=== PATIENT | female | born 1985 | race Two or more races ===

== ENCOUNTER 2025-04-03 23:04 | Inpatient (IN) | payer MEDICAID, OTHER ==
[~2025-04-03] VITALS: Ht 165.1 cm; Wt 122.7 kg
--- NOTE | 2025-04-03 23:24 | ED.PDOC ---
HPI Comments 39 year old female came to ER for chest pains. Patient has history of hypertension, dyslipidemia, congestive heart failure, CVA. Claims she has been having left-sided chest pains, constant, aching, nonradiating for the past 3 days, associated with shortness a breath and diaphoresis. Denies any nausea or vomiting. Denies any use of prohibited drugs. Patient states she was seen at [facility] 2 weeks ago for AL but she left AMA Chief Complaint: Chest Pain Time Seen by MD: 23:23 Reviewed Notes: Nurses Notes Information Source: Patient Mode of Arrival: EMS Severity: Moderate Timing: Hours Duration: Since onset Prehospital treatment: None Location: Chest (L) Radiation: No Radiation Quality: Aching Onset: With Light Exertion Cardiac Risk Factors: Hyperlipidemia, HTN History of: Similar pain in past Associated Signs and Symptoms: SOB Past Medical History PAST MEDICAL HISTORY: CHF, CVA, High Lipids, HTN Surgical History: Denies all surgeries AREA FORESTER History: Denies all AREA FORESTER Hx Family History Family History: Reviewed,noncontributory to illness Social History Smoker: Non-Smoker Alcohol: Denies ETOH Use Drugs: Denies Drug Use Lives In: Home Constitutional: denies: chills, diaphoresis, fatigue, fever, malaise, sweats, weakness, others EENTM: denies: blurred vision, double vision, ear bleeding, ear discharge, ear drainage, ear pain, ear ringing, eye pain, eye redness, hearing loss, mouth pain, mouth swelling, nasal discharge, nose bleeding, nose congestion, nose pain, photophobia, tearing, throat pain, throat swelling, voice changes, others Respiratory: reports: SOB at rest, shortness of breath; denies: cough, hemoptysis, orthopnea, SOB with excertion, stridor, wheezing, others Cardiovascular: reports: chest pain, dizzy spells; denies: diaphoresis, Dyspnea on exertion, edema, irregular heart beat, left arm pain, lightheadedness, palpitations, PND, syncope, others Gastrointestinal: denies: abdomen distended, abdominal pain, blood streaked bowels, constipated, diarrhea, dysphagia, difficulty swallowing, hematemesis, melena, nausea, poor appetite, poor fluid intake, rectal bleeding, rectal pain, vomiting, others Genitourinary: denies: abnormal vagina bleeding, burning, dyspareunia, dysuria, flank pain, frequency, hematuria, incontinence, pain, , vagina discharge, urgency, others Neurological: denies: dizziness, fainting, headache, left sided numbness, left sided weakness, numbness, paresthesia, pre-existing deficit, right sided numbness, right sided weakness, seizure, speech problems, tingling, tremors, weakness, others Musculoskeletal: denies: back pain, gout, joint pain, joint swelling, muscle pain, muscle stiffness, neck pain, others Integumetry: denies: bruises, change in color, change in hair/nails, dryness, laceration, lesions, lumps, rash, wounds, others Allergic/Immunocompromised: denies: Difficulty Healing, Frequent Infections, Hives, Itching, others Hematologic/Lymphatic: denies: anemia, blood clots, easy bleeding, easy bruising, swollen glands, others Endocrine: denies: excessive hunger, excessive sweating, excessive thirst, excessive urination, flushing, intolerance to cold, intolerance to heat, unexplained weight gain, unexplained weight loss, others Psychiatric: denies: anxiety, bipolar disorder, depression, hopeless, panic disorder, schizophrenia, sleepless, suicidal, others Physical Exam General Appearance: No Apparent Distress, Normal HEENT: Normal ENT Inspection, Pharynx Normal, TMs Normal Neck: Full Range of Motion, Non-Tender, Normal, Normal Inspection Respiratory: Chest Non-Tender, Lungs Clear, No Accessory Muscle Use, No Respiratory Distress, Normal Breath Sounds Cardiovascular: No Edema, No JVD, No Murmur, No Gallop, Normal Peripheral Pulses, Regular Rate/Rhythm Breast Exam: Deferred Gastrointestinal: No Organomegaly, Non Tender, No Pulsatile Mass, Normal Bowel Sounds, Soft Genitalia: Deferred Pelvic: Deferred Rectal: Deferred Extremities: No calf tenderness, Normal capillary refill, Normal inspection, Normal range of motion, Non-tender, No pedal edema Musculoskeletal : Apperance: Normal Neurologic: Alert, heat treat technician II-XII nml as Tested, No Motor Deficits, Normal Affect, Normal Mood, No Sensory Deficits Cerebellar Function: Normal Reflexes: Normal Skin: Dry, Normal Color, Warm Lymphatic: No Adenopathy EKG EKG : Pulse Rate (adult): 124 Cardiac Rhythm: ST Was a procedure done? Was a procedure done?: No CP Differential Dx Differential Diagnosis: Angina, Anxiety / Panic Attack, Hyperthyroidism, Hyperventilation, Sinus Tachycardia Differential Diagnosis: Angina, Chest Wall Pain, Costochondritis, Esophageal reflux/spasm, Gastritis, Myocardial Infarction, Pneumonia X-Ray, Labs, Meds, VS Vital Signs Date Time Temp Pulse Resp B/P (MAP) Pulse Ox O2 Delivery O2 Flow Rate FiO2 04/03/25 23:52 120 17 98 Nasal Cannula* 2 28 04/03/25 23:45 124 04/03/25 23:40 100.0 120 17 145/114 (124) 98 100.0 04/03/25 23:24 124 Lab Test 04/03/25 23:34 04/03/25 23:12 Range/Units POC Glucose 110 H 70-106 mg/dl White Blood Count 13.5 H 4.4-10.8 10^3/uL Red Blood Count 4.70 4.0-5.20 10^6/uL Hemoglobin 14.3 12.2-16.2 g/dL Hematocrit 43.6 36.0-46.0 % Mean Corpuscular Volume 92.7 80.0-100.0 fL Mean Corpuscular Hemoglobin 30.4 28.0-32.0 pg Mean Corpuscular Hemoglobin Concent 32.8 32.0-36.0 g/dL Red Cell Distribution Width 15.9 H 11.8-14.3 % Platelet Count 222 140-450 10^3/uL Mean Platelet Volume 8.8 6.9-10.8 fL Neutrophils (%) (Auto) 45.7 37.0-80.0 % Lymphocytes (%) (Auto) 45.8 10.0-50.0 % Monocytes (%) (Auto) 6.9 0.0-12.0 % Eosinophils (%) (Auto) 1.1 0.0-7.0 % Basophils (%) (Auto) 0.5 0.0-2.0 % Neutrophils # (Auto) 6.2 1.6-8.6 10 ^3/uL Lymphocytes # (Auto) 6.2 H 0.4-5.4 10 ^3/uL Monocytes # (Auto) 0.9 0-1.3 10 ^3/uL Eosinophils # (Auto) 0.1 0-0.8 10 ^3/uL Basophils # (Auto) 0.1 0-0.2 10 ^3/uL Nucleated Red Blood Cells 0.1 % Prothrombin Time Pending Prothrombin Time INR Pending Activated Partial Thromboplast Time Pending Sodium Level Pending Potassium Level Pending Chloride Level Pending Carbon Dioxide Level Pending Anion Gap Pending Blood Urea Nitrogen Pending Creatinine Pending Glomerular Filtration Rate Calc Pending BUN/Creatinine Ratio Pending Serum Glucose Pending Calcium Level Pending Troponin I High Sensitivity 4740 *H </=34 ng/L Time of 1ST Reevaluation: 23:20 Reevaluation 1ST: Unchanged Patient Education/Counseling: Diagnosis, Treatment Family Education/Counseling: No Family Present Departure 1 Departure Time of Disposition: 00:03 (Patient presented with chest pain that was concerning for possible STEMI, ACS, PE, Pneumonia, Muscle Strain, COPD, Dissection. Data: 1. I ordered and reviewed the result of at least 3 labs including a CBC, BMP, and Troponin. 2. I independently interpreted the following tests: EKG which shows sinus tachycardia and Chest X-ray which shows benign chest.Risk:This patient has a high risk of morbidity due to further diagnostic testing or treatment and may suffer from an acute cardiac or respiratory disorder. Workup reveals NSTEMI and patient should be admitted for further workup and possible expert consultation. ) Impression: Primary Impression: NSTEMI (non-ST elevated myocardial infarction) Additional Impression: Acute chest pain Disposition: 09 ADMITTED INPATIENT Admit to: Tele Condition: Guarded Critical Care Note Critical Care Time?: Yes (35 min-critical care time only) Critical care comment: Acute chest pains Authorized and Performed by: José Espinosa MD Total critical care time: Approximately 37 minutes Due to a high probability of clinically significant, life threatening deterioration, the patient required my highest level of preparedness to intervene emergently and I personally spent this critical care time directly and personally managing the patient. This critical care time included obtaining a history; examining the patient; pulse oximetry; ordering and review of studies; arranging urgent treatment with development of a management plan; evaluation of patient's response to treatment; frequent reassessment; and, discussions with other providers. This critical care time was performed to assess and manage the high probability of imminent, life-threatening deterioration that could result in multi-organ failure. It was exclusive of separately billable procedures and treating other patients and teaching time. Please see my other sections and the rest of the note for further information on patient assessment and treatment. Stability Stability form required: No Heart Score Heart Score: Heart Score Response (Comments) Value History Moderate Suspicious 1 EKG Repolarization Disturb 1 Age <45 0 Risk Factors >3 or Hx ASHD 2 Troponin Normal limit 0 Total 4 I personally scribed for JOSÉ ESPINOSA MD ([facility]) on 04/03/25 at 23:24. Electronically submitted by [place] ([email or web address]). I personally scribed for JOSÉ ESPINOSA MD ([facility]) on 04/03/25 at 23:51. Electronically submitted by [place] ([email or web address]). JOSÉ ESPINOSA MD April 03, 2025 23:24
[2025-04-03 23:50] LABS: Basophils # (auto) 0.1 10 ^3/uL (0-0.2); Basophils % (auto) 0.5 % (0.0-2.0); Eosinophils # (auto) 0.1 10 ^3/uL (0-0.8); Eosinophils % (auto) 1.1 % (0.0-7.0); Hematocrit 43.6 % (36.0-46.0); Hemoglobin 14.3 g/dL (12.2-16.2); Lymphocytes # (auto) 6.2 10 ^3/uL (0.4-5.4); Lymphocytes % (auto) 45.8 % (10.0-50.0); Mean Corpuscular Hemoglobin 30.4 pg (28.0-32.0); Mean Corpuscular Hgb Conc. 32.8 g/dL (32.0-36.0); Mean Corpuscular Volume 92.7 fL (80.0-100.0); Monocytes # (auto) 0.9 10 ^3/uL (0-1.3); Monocytes % (auto) 6.9 % (0.0-12.0); Neutrophils # (auto) 6.2 10 ^3/uL (1.6-8.6); Neutrophils % (auto) 45.7 % (37.0-80.0); Nucleated Red Blood Cells % 0.1 %; Platelet Count (auto) 222 10^3/uL (140-450); Red Cell Distribution Width 15.9 % (11.8-14.3); White Blood Cell 13.5 10^3/uL (4.4-10.8)
[2025-04-03 23:52] VITALS: PULSE 120; RESP 17; O2SAT 98
[2025-04-04] MEDS ORDERED: HEPARIN DRIP/D5W 100UNITS/ML 250 ML IV SCH
[2025-04-04 00:05] LABS: Chloride 107 mmol/L (98-107); Potassium 4.6 mmol/L (3.5-5.1); Sodium 138 mmol/L (136-145)
[2025-04-04 00:06] LABS: Anion Gap 7 (5-15); Calcium 9.8 mg/dL (8.7-10.4); Carbon Dioxide 24 mmol/L (20-31)
[2025-04-04 00:11] LABS: BUN/Creatinine Ratio 11.1 (10.0-20.0); Blood Urea Nitrogen 14 mg/dL (9-23); Glucose 117 mg/dL (74-106)
[2025-04-04] MEDS: ONDANSETRON HCL 4 MG/2 ML VIAL IV ONE (00:16)
[2025-04-04 00:17] LABS: INR 1.19 (0.9-1.15); Partial Thromboplastin Time 25.6 SEC (24.5-34.5); Prothrombin Time 12.4 sec (9.3-11.8)
[2025-04-04] MEDS: MORPHINE SULFATE 4 MG/ML SYR/VIAL IV ONE (00:17)
[2025-04-04] MEDS: HEPARIN SODIUM (PORCINE) 5000 UNITS/ML 1ML VIAL IV ONE (00:17)
--- NOTE | 2025-04-04 00:21 | DVH ---
CHEST RADIOGRAPH Indication: chest pain Technique: Single frontal view of the chest was obtained COMPARISON: None FINDINGS / IMPRESSION: Lines and Tubes: None Lungs: Mild pulmonary vascular congestion. No evidence of pulmonary infiltrates or edema. Pleura: No effusion. No pneumothorax. Cardiomediastinal contours: Moderate cardiomegaly.
[2025-04-04] MEDS: HEPARIN DRIP/D5W 100UNITS/ML 250 ML IV SCH ×3 (01:23→16:46)
--- NOTE | 2025-04-04 03:16 | ECG ---
[facility] [place] Test Date: 2025-04-04 Test Time: 00:15:52 Pat Name: AUGUST MOTLEY Department: ED Room: 0219T Gender: F Director Of Labor And Delivery: OGRAN : 1985 Requested By: JOSÉ GALARZA Order Number: [id number] Reading MD: Haroon Newman Measurements Intervals [place] Rate: 116 P: 68 AL: 156 QRS: 35 QRSD: 84 T: 75 QT: 338 QTc: 470 Interpretive Statements Sinus tachycardia LAE, consider biatrial enlargement Borderline low voltage, extremity leads Baseline wander in lead(s) I,III,aVL Electronically Signed On 04-05-2025 22:28:30 PDT by Haroon Newman Please click the below link to view image of tracing.
--- NOTE | 2025-04-04 03:16 | ECG ---
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
[2025-04-04] MEDS ORDERED: ONDANSETRON HCL 4 MG/2 ML VIAL IV PRN (04:45)
[2025-04-04] MEDS ORDERED: MORPHINE SULFATE INJ 2 MG/ml SYRG IV PRN ×2 (04:45→05:15)
[2025-04-04] MEDS ORDERED: DOCUSATE SOD 100 MG CAP PO PRN (04:45)
[2025-04-04] MEDS ORDERED: HYDROcodone-ACET 5/325MG TAB PO PRN (04:45)
[2025-04-04] MEDS ORDERED: ACETAMINOPHEN 325 MG TAB PO PRN (04:45)
[2025-04-04] MEDS: cefTRIAXone 1GM/50ML D5W 50 ML IV ONE (04:56)
[2025-04-04] MEDS: SODIUM CHLORIDE 0.9% 1,000 ML IV SCH (04:56)
--- NOTE | 2025-04-04 05:17 | DVHHP2 ---
History of Present Illness Reason for Visit: NSTEMI (non-ST elevated myocardial infarction) History of Present Illness The patient is a 39-year-old female with past medical history of CHF, CVA, hyperlipidemia, and hypertension who presented to [facility] ED with complaint of chest pain. Patient reports symptoms progressively get worse with left-sided chest pain, constant, aching in nature, nonradiating, for the past 3 days, associated shortness of breaths, diaphoresis, getting worse today that prompted this visit. Patient was seen and evaluated in the ED, laboratory data shows WBC 13.5, platelets 222, sodium 138, potassium 4.6, BUN 14, creatinine 1.26, glucose 117, PT 12.4, INR 1.19, PTT 25.6, troponin 4146, blood pressure 154/121, heart rate 99, temperature 97.2 F, O2 saturation 99% on oxygen. Chest x-ray revealing mild pulmonary vascular congestion, moderate cardiomegaly, no evidence of pulmonary infiltrate or edema, no effusion, no pneumothorax. Patient was started on heparin drip, please see medication orders section in the computer. On my assessment, patient denied chest pain at this moment, no headache, no dizziness, no diaphoresis, currently on oxygen, no diarrhea, no nausea, no vomiting, no fever, no chills. Patient was admitted for further evaluation and medical management. Past Medical History CHF, CVA, High Lipids, HTN Past Surgical History Denies all surgeries Family History Reviewed, noncontributory to the management of this case. Past Social History The patient lives at home, denies smoking, alcohol or illicit drugs abuse. Review of Systems Constitutional: Yes: Weakness; No: Fever, Chills, Sweats, Malaise, Other Eyes: No: Pain, Vision change, Conjunctivae inflammation, Eyelid inflammation, Other, Redness ENT: No: Ear pain, Ear discharge, Nose pain, Nose discharge, Nose congestion, Mouth pain, Mouth swelling, Throat pain, Throat swelling, Other Respiratory: Shortness of breath, Other (SOB at rest, dizzy spells); No: Cough, Dry, SOB with excertion, Wheezing, Hemoptysis, Pleuritic Pain, Sputum, Wheezing Cardiovascular: Chest Pain; No: Palpitations, Orthopnea, Paroxysmal Noc. Dyspnea, Edema, Lt Headedness, Other Gastrointestinal: No: Nausea, Vomiting, Abdominal Pain, Diarrhea, Constipation, Melena, Hematochezia, Other Genitourinary: No Dysuria, No Frequency, No Incontinence, No Hematuria, No Retention, No Other Musculoskeletal: No: other, neck pain, shoulder pain, arm pain, back pain, hand pain, leg pain, foot pain Skin: No: Rash, Lesions, Jaundice, Bruising, Other Neurological: No: Weakness, Numbness, Incoordination, Change in speech, Confusion, Seizures, Other Allergies: Coded Allergies: Vancomycin (Verified Allergy, Unknown, 04/04/25) Medications Current Medications Medications Dose Ordered Sig/Daryl Route Start Time Stop Time Status Last Admin Dose Admin Heparin Sodium/ Dextrose 250 ml @ 10 mls/hr Q24H IV 04/04/25 01:15 04/04/25 01:23 10 MLS/HR Aspirin 81 mg DAILY PO 04/04/25 10:00 Atorvastatin Calcium 40 mg HS PO 04/04/25 22:00 Hydralazine HCl 10 mg Q6HP PRN IV 04/04/25 04:45 Metoprolol Tartrate 50 mg BID PO 04/04/25 10:00 Ceftriaxone Sodium 50 ml @ 100 mls/hr Q24H IV 04/05/25 05:00 Sodium Chloride 1,000 ml @ 60 mls/hr [id number] IV 04/04/25 04:45 04/04/25 04:56 60 MLS/HR Acetaminophen/ Hydrocodone Bitart 1 tab Q4HP PRN PO 04/04/25 04:45 Ondansetron HCl 4 mg Q4HP PRN IV 04/04/25 04:45 Docusate Sodium 100 mg BIDPRN PRN PO 04/04/25 04:45 Acetaminophen 650 mg Q6HP PRN PO 04/04/25 04:45 Morphine Sulfate 2 mg Q4HPRN PRN IV 04/04/25 04:45 Exam Vital Signs Vital Signs Date Time Temp Pulse Resp B/P (MAP) Pulse Ox O2 Delivery O2 Flow Rate FiO2 04/04/25 04:00 99 24 154/121 (132) 99 04/04/25 02:00 97.2 97.2 04/03/25 23:52 Nasal Cannula* 2 28 General Appearance: Alert, Oriented X3, Cooperative, No acute distress HEENT: Atraumatic, PERRLA, EOMI, Mucous membr. moist/pink Respiratory: Clear to auscultation, Normal air movement Cardiovascular: Regular rate, Normal S1, Normal S2, No murmurs Abdominal: Normal bowel sounds, Soft, No tenderness, No hepatospenomegaly, No masses Extremities: No clubbing, No cyanosis, No edema, Normal pulses, No tenderness/swelling Skin: No rashes, No breakdown, No significant lesion Neuro: Normal speech, Normal tone, Sensation intact, Cranial nerves 3-12 NL, Reflexes 2+, Other (Generalized weakness) Psych/Mental Status: Mental status NL, Mood NL Labs/Xrays Labs Test 04/04/25 02:00 04/03/25 23:34 04/03/25 23:12 Range/Units Troponin I High Sensitivity 4146 *H </=34 ng/L POC Glucose 110 H 70-106 mg/dl White Blood Count 13.5 H 4.4-10.8 10^3/uL Red Blood Count 4.70 4.0-5.20 10^6/uL Hemoglobin 14.3 12.2-16.2 g/dL Hematocrit 43.6 36.0-46.0 % Mean Corpuscular Volume 92.7 80.0-100.0 fL Mean Corpuscular Hemoglobin 30.4 28.0-32.0 pg Mean Corpuscular Hemoglobin Concent 32.8 32.0-36.0 g/dL Red Cell Distribution Width 15.9 H 11.8-14.3 % Platelet Count 222 140-450 10^3/uL Mean Platelet Volume 8.8 6.9-10.8 fL Neutrophils (%) (Auto) 45.7 37.0-80.0 % Lymphocytes (%) (Auto) 45.8 10.0-50.0 % Monocytes (%) (Auto) 6.9 0.0-12.0 % Eosinophils (%) (Auto) 1.1 0.0-7.0 % Basophils (%) (Auto) 0.5 0.0-2.0 % Neutrophils # (Auto) 6.2 1.6-8.6 10 ^3/uL Lymphocytes # (Auto) 6.2 H 0.4-5.4 10 ^3/uL Monocytes # (Auto) 0.9 0-1.3 10 ^3/uL Eosinophils # (Auto) 0.1 0-0.8 10 ^3/uL Basophils # (Auto) 0.1 0-0.2 10 ^3/uL Nucleated Red Blood Cells 0.1 % Prothrombin Time 12.4 H 9.3-11.8 sec Prothrombin Time INR 1.19 H 0.9-1.15 Activated Partial Thromboplast Time 25.6 24.5-34.5 SEC Sodium Level 138 136-145 mmol/L Potassium Level 4.6 3.5-5.1 mmol/L Chloride Level 107 98-107 mmol/L Carbon Dioxide Level 24 20-31 mmol/L Anion Gap 7 5-15 Blood Urea Nitrogen 14 9-23 mg/dL Creatinine 1.26 H 0.550-1.02 mg/dL Glomerular Filtration Rate Calc 55 >90 mL/min BUN/Creatinine Ratio 11.1 10.0-20.0 Serum Glucose 117 H 74-106 mg/dL Calcium Level 9.8 8.7-10.4 mg/dL PATIENT: AUGUST MOTLEY ACCT: [id number] UNIT: [id number] : 1985 LOC: ER ROOM / BED: / AGE / SEX: 39 / F ADM STATUS: REG ER SERVICE [id number] ORDERING PHYSICIAN: JOSÉ GALARZA MD PROCEDURE(s): CXRP - CHEST PORTABLE REASON: chest pain ORDER NUMBER(s): [id number], ACCESSION NUMBER(s): [id number] CHEST RADIOGRAPH Indication: chest pain Technique: Single frontal view of the chest was obtained COMPARISON: None FINDINGS/IMPRESSION: Lines and Tubes: None Lungs: Mild pulmonary vascular congestion. No evidence of pulmonary infiltrates or edema. Pleura: No effusion. No pneumothorax. Cardiomediastinal contours: Moderate cardiomegaly. Assessment/Plan Assessment/Plan NSTEMI (non-ST elevated myocardial infarction) Acute chest pain Generalized weakness Acute respiratory distress Plan 1. Admit to telemetry units 2. Breathing treatment 3. Pain control management 4. Management of fluids and electrolytes 5. Consultation for Cardiology 6. Diagnostic tests chest x-ray 7. DVT prophylaxis-on heparin drip 8. Repeat labs CBC, CMP in a.m. 9. Continue with current medical management 10. Treatment plan discussed with patient and RN. Patient verbalized understanding. Plan discussed with: Patient, Other (RN) My Orders Orders - GREGORIO KERN DNP Procedure Category Date Status Time * Cardiology Consult CONS 04/04/25 Transmitted 04:41 Aspirin Tablet PHA 04/04/25 In Process 10:00 Atorvastatin (Lipitor) PHA 04/04/25 In Process 22:00 Hydralazine Injection PHA 04/04/25 In Process (Apresoline Inject 04:45 Metoprolol Tartrate PHA 04/04/25 In Process Tablet (Lopressor Ta 10:00 Allergies YAQUELIN 04/04/25 In Process 04:41 Code Status CODE 04/04/25 Transmitted 04:41 Sodium Chloride 0.9% PHA 04/04/25 In Process 04:45 Oxygen Per Hour RT 04/04/25 Transmitted 04:41 Hydrocodone-Acet PHA 04/04/25 In Process 5325mg Tab ([place] 04:45 Ondansetron Hcl PHA 04/04/25 In Process (Zofran) 04:45 Docusate Sodium PHA 04/04/25 In Process Capsule (Colace 04:45 Fall Risk Precautions YAQUELIN 04/04/[address] 04:41 Complete Blood Count LAB 04/05/25 Verified 04:00 Comprehensive LAB 04/05/25 Verified Metabolic Panel 04:00 Cardiac DIET 04/04/25 Transmitted Diet-2gna,Lofat,Lochol Breakfast Condition: Serious YAQUELIN 04/04/25 In Process 04:41 Acetaminophen Tablet PHA 04/04/25 In Process (Tylenol Tablet) 04:45 Bedrest With Bathroom YAQUELIN 04/04/25 In Process Privileg 04:41 Maintain Bed Rest YAQUELIN 04/04/25 In Process 04:41 Morphine Sulfate PHA 04/04/25 In Process Injection 04:45 Sequential YAQUELIN 04/04/25 In Process Compression Device Ceftriaxone 1gm/50ml PHA 04/05/25 In Process D5w (Rocephin) 05:00 Admit ADMIT 04/04/25 Verified 05:15 Nitroglycerin PHA 04/04/25 Verified Sublingual (Ntrostat 05:15 Morphine Sulfate PHA 04/04/25 Verified Injection 05:15 Notify Of Changes [facility] 04/04/25 Verified From Base 05:15 Business Strategy Manager For [facility] 04/04/25 Verified 24 Hours 05:15 Emergency Dysrhythmia [facility] 04/04/25 Verified Protocol 05:15 Rhythm Strips Once [facility] 04/04/25 Verified Every Shift 05:15 Oxygen By Nasal RT 04/04/25 Verified Cannula 05:15 Problem List: (1) NSTEMI (non-ST elevated myocardial infarction) (2) Acute chest pain (3) Generalized weakness (4) Acute respiratory distress Date of Service: April 04, 2025 Billing Provider: GREGORIO KERN DNP Common Visit Codes: [id number]-[id number] INP/OBS CARE (HIGH) GREGORIO KERN DNP April 04, 2025 05:17
[2025-04-04] MEDS: hydrALAZINE HCL 20 MG/ML VL IV PRN (05:28)
[2025-04-04 08:06] LABS: INR 1.15 (0.9-1.15); Partial Thromboplastin Time 35.9 SEC (24.5-34.5)
[2025-04-04 08:50] LABS: Magnesium 1.9 mg/dL (1.6-2.6)
--- NOTE | 2025-04-04 09:30 | DVHINCON2 ---
GASTON FERNANDEZ [facility] 04/04/25 0930: Date Seen: April 04, 2025 Referring Physician ZACKERY Hardy Reason for Consultation NSTEMI History of Present Illness This is a 39-year-old female patient who presents to the emergency room with chief complaint of chest pain for three days prior to emergency room arrival. The patient describes the pain as unprovoked, intermittent, heavy in nature, left-sided and nonradiating. She denies any associated symptoms. Initial twelve lead electrocardiogram reveals sinus tachycardia Q-waves seen in inferior leads. Initial troponin level of 4740ng/L with slight down trend thereafter. Significant past medical history includes congestive heart failure, myocardial infarction, hypertension, dyslipidemia, CVA without residual weakness, obesity, amphetamine and tobacco use. The patient reports that she was recently at [facility] approximately two weeks ago where she was diagnosed with "heart failure and a heart attack". She denies undergoing any procedures such as coronary angiogram. She states that she left against medical advice at the time because she was tired of waiting for her echocardiogram results. Of note, the patient also admits to recent methamphetamine use approximately 3-4 days ago. Past Medical History Past medical history reviewed. No other significant than mentioned above. Past Surgical History Denies any previous surgeries Family History Family history reviewed. Social History Admits to methamphetamine use approximately 3-4 days ago Patient has a 15 pack-year history, smokes half a pack per day Denies any alcohol use Allergies: Coded Allergies: Vancomycin (Verified Allergy, Unknown, 04/04/25) Home Meds Home medications reviewed. Current Medications Current Medications Medications (Trade) Dose Ordered Sig/Daryl Route PRN Reason Start Time Stop Time Status Last Admin Heparin Sodium/ Dextrose 250 ml @ 9 mls/hr Q24H IV 04/04/25 00:00 04/04/25 01:07 DC Heparin Sodium/ Dextrose 250 ml @ 10 mls/hr Q24H IV 04/04/25 01:15 04/04/25 08:48 DC 04/04/25 01:23 Aspirin 81 mg DAILY PO 04/04/25 10:00 Atorvastatin Calcium (Lipitor) 40 mg HS PO 04/04/25 22:00 Hydralazine HCl (Apresoline Injection) 10 mg Q6HP PRN IV SBP>150 04/04/25 04:45 04/04/25 05:28 Metoprolol Tartrate (Lopressor Tablet) 50 mg BID PO 04/04/25 10:00 Ceftriaxone Sodium 50 ml @ 100 mls/hr Q24H IV 04/05/25 05:00 Sodium Chloride 1,000 ml @ 60 mls/hr [id number] IV 04/04/25 04:45 04/04/25 04:56 Acetaminophen/ Hydrocodone Bitart (Raymond 5/325MG Tab) 1 tab Q4HP PRN PO MODERATE PAIN (4-6 PAIN SCALE) 04/04/25 04:45 Ondansetron HCl (Zofran) 4 mg Q4HP PRN IV NAUSEA / VOMITING 04/04/25 04:45 Docusate Sodium (Colace Capsule) 100 mg BIDPRN PRN PO FOR CONSTIPATION 04/04/25 04:45 Acetaminophen (Tylenol Tablet) 650 mg Q6HP PRN PO PAIN SCALE 1-3 OR TEMP>100.4 04/04/25 04:45 Morphine Sulfate 2 mg Q4HPRN PRN IV SEVERE PAIN (7-10 PAIN SCALE) 04/04/25 04:45 Nitroglycerin (Ntrostat Sublingual) 0.4 mg Q5MINP PRN SL FOR CHEST PAIN 04/04/25 05:15 Morphine Sulfate 2 mg Q30M PRN IV FOR CHEST PAIN 04/04/25 05:15 Heparin Sodium/ Dextrose 250 ml @ 12 mls/hr [id number] IV 04/04/25 09:00 Review of Systems Constitutional: No symptom reported Ears, Nose, & Throat: No symptom reported Eyes: No symptom reported Neurological: No symptoms reported Pulmonary/Respiratory: No symptoms reported Cardiovascular: Chest pain Gastrointestinal: No symptom reported Genitourinary: No symptom reported Musculoskeletal: No symptom reported Skin: No symptom reported Psychiatric: No symptom reported Endocrine: No symptom reported Hematologic/Lymphatic: No symptom reported Vital Signs Vital Signs Date Time Temp Pulse Resp B/P (MAP) Pulse Ox O2 Delivery O2 Flow Rate FiO2 04/04/25 08:00 102 04/04/25 06:00 25 155/118 (130) 98 04/04/25 02:00 97.2 97.2 04/03/25 23:52 Nasal Cannula* 2 28 Physical Exam General Appearance: Cooperative. Morbidly obese Pulmonary/Respiratory: Clear, bilateral breaths sounds. Cardiovascular/Chest: Regular rate and rhythm. Peripheral Pulses: 2+ Radial (R). 2+ Radial (L). 2+ Pedal (R). 2+ Pedal (L) Abdominal Exam: Normal bowel sounds Ankle Exam: Negative ankle edema Lower extremities: Negative lower extremity edema Neuro/Mental Status: A/OX4, coherent. Thoughts/Psych: Normal thought pattern. Appropriate mood and affect. Good judgment and insight. Appearance: No acute distress. Skin Exam: Normal inspection. Normal color. Warm and dry. Labs/Diagnostic Data Labs Test 04/04/25 07:37 04/04/25 02:00 04/03/25 23:34 04/03/25 23:12 Range/Units Prothrombin Time 12.0 H 9.3-11.8 sec Prothrombin Time INR 1.15 0.9-1.15 Activated Partial Thromboplast Time 35.9 H 24.5-34.5 SEC Magnesium Level 1.9 1.6-2.6 mg/dL Troponin I High Sensitivity 4146 *H </=34 ng/L Triglycerides Level 91 < 150 mg/dL Cholesterol Level 127 < 200 mg/dL LDL Cholesterol 89 < 100 mg/dL HDL Cholesterol 30 L 40-59 mg/dL Thyroid Stimulating Hormone (TSH) 1.76 0.55-4.78 uIU/mL POC Glucose 110 H 70-106 mg/dl White Blood Count 13.5 H 4.4-10.8 10^3/uL Red Blood Count 4.70 4.0-5.20 10^6/uL Hemoglobin 14.3 12.2-16.2 g/dL Hematocrit 43.6 36.0-46.0 % Mean Corpuscular Volume 92.7 80.0-100.0 fL Mean Corpuscular Hemoglobin 30.4 28.0-32.0 pg Mean Corpuscular Hemoglobin Concent 32.8 32.0-36.0 g/dL Red Cell Distribution Width 15.9 H 11.8-14.3 % Platelet Count 222 140-450 10^3/uL Mean Platelet Volume 8.8 6.9-10.8 fL Neutrophils (%) (Auto) 45.7 37.0-80.0 % Lymphocytes (%) (Auto) 45.8 10.0-50.0 % Monocytes (%) (Auto) 6.9 0.0-12.0 % Eosinophils (%) (Auto) 1.1 0.0-7.0 % Basophils (%) (Auto) 0.5 0.0-2.0 % Neutrophils # (Auto) 6.2 1.6-8.6 10 ^3/uL Lymphocytes # (Auto) 6.2 H 0.4-5.4 10 ^3/uL Monocytes # (Auto) 0.9 0-1.3 10 ^3/uL Eosinophils # (Auto) 0.1 0-0.8 10 ^3/uL Basophils # (Auto) 0.1 0-0.2 10 ^3/uL Nucleated Red Blood Cells 0.1 % Sodium Level 138 136-145 mmol/L Potassium Level 4.6 3.5-5.1 mmol/L Chloride Level 107 98-107 mmol/L Carbon Dioxide Level 24 20-31 mmol/L Anion Gap 7 5-15 Blood Urea Nitrogen 14 9-23 mg/dL Creatinine 1.26 H 0.550-1.02 mg/dL Glomerular Filtration Rate Calc 55 >90 mL/min BUN/Creatinine Ratio 11.1 10.0-20.0 Serum Glucose 117 H 74-106 mg/dL Hemoglobin A1c 6.3 H <5.7 % A1C Calcium Level 9.8 8.7-10.4 mg/dL Assessment NSTEMI, rule out coronary artery disease Rule out structural heart disease Hypertension Dyslipidemia CVA without residual weakness Tobacco use Amphetamine use Obesity Plan/Recommendation We will continue with the following plan/recommendations (Dr. Cleary): * Transthoracic echocardiogram to evaluate cardiac function * Chest pain protocol * CASEY score: 2 points * HEART score: 4 points (moderate) * Heparin drip per ACS protocol * Single antiplatelet therapy and lipid-lowering agent * Close Cardiac surveillance * [facility] Case discussed with . Given the patient's clinical presentation and elevated troponin, the patient may benefit from a coronary angiogram with left heart catheterization. The procedure was discussed with the patient in full detail including risks and benefits. Risks include but are not limited to bleeding, contrast-induced nephropathy, stroke, and even . The patient understands and is agreeable to undergo the procedure. We will schedule the patient at soonest availability on 04/06/2025. Thank you for allowing us to care for this patient. Please call with any questions or concerns. Critical care time spent: 44 minutes This medical document was created using an electronic medical record system with voice recognition software and computerized dictation system. Although this document has been carefully reviewed, there might still be some phonetic and typographical errors. Occasional wrong-word or ``sound-alike substitutions may have occurred due to the inherent limitations of voice recognition software. These areas are purely typographical due to imperfections of the software programs and do not reflect any compromise in the patient's medical care. Please read the chart carefully and recognize, using context, where these substitutions have occurred. Plan discussed with: Patient NYHA Physical activity limitations: NA Date of Service: April 04, 2025 Billing Provider: GASTON FERNANDEZ Cardiology Common Codes: [id number] INP/OBS CARE (High) Cardiology Consultation Codes: [id number] CONSULT <45MIN LAURA CLEARY MD 04/04/25 1406: Allergies: Coded Allergies: Vancomycin (Verified Allergy, Unknown, 04/04/25) Plan/Recommendation pt personally seen in ER has andre h on body? from heat i personally reviewed her [facility] records negative v q scan, lvef 35% i talked to pt recommedn [facility] sunday and GDMT with HF tx 'i want to leave" pt likely wants to go home and do meth may from this i explained to her with RN with me pt left ama from [facility] as well , +meth very poor prognosis] GASTON FERNANDEZ April 04, 2025 09:30 LAURA CLEARY MD April 04, 2025 14:06
[2025-04-04] MEDS: ASPirin 81 mg TAB PO SCH (10:32)
[2025-04-04] MEDS: METOPROLOL TARTRATE 50 MG TAB PO SCH (10:37)
[2025-04-04] MEDS: OPTISON 3ml Vial for INJ IV ONE (12:13)
[2025-04-04] MEDS: FUROSEMIDE 20 MG/2 ML VIAL IV SCH (12:16)
--- NOTE | 2025-04-04 13:17 | DVHPN2 ---
Reviewed: Care Plan, H&P, Labs, Medications, Previous Orders, Radiology Changes from previous H/P or p: No Changes Eyes: No Pain, No Vision change, No Conjunctivae inflammation, No Eyelid inflammation, No Other, No Redness ENT: No Ear pain, No Ear discharge, No Nose pain, No Nose discharge, No Nose congestion, No Mouth pain, No Mouth swelling, No Throat pain, No Throat swelling, No Other Cardiovascular: Chest Pain; No Palpitations, No Orthopnea, No Paroxysmal Noc. Dyspnea, No Edema, No Lt Headedness, No Other Respiratory: No Cough, No Dry; Shortness of breath; No SOB with excertion, No Wheezing, No Hemoptysis, No Pleuritic Pain, No Sputum; Other (SOB at rest, dizzy spells) Gastrointestinal: No Nausea, No Vomiting, No Abdominal Pain, No Diarrhea, No Constipation, No Melena, No Hematochezia, No Other Genitourinary: No Dysuria, No Frequency, No Incontinence, No Hematuria, No Retention, No Other Musculoskeletal: No other, No neck pain, No shoulder pain, No arm pain, No back pain, No hand pain, No leg pain, No foot pain Skin: No Rash, No Lesions, No Jaundice, No Bruising, No Other Objective Vitals Vital Signs Date Time Temp Pulse Resp B/P (MAP) Pulse Ox O2 Delivery O2 Flow Rate FiO2 04/04/25 12:16 148/112 04/04/25 11:37 104 04/04/25 06:00 25 98 04/04/25 02:00 97.2 97.2 04/03/25 23:52 Nasal Cannula* 2 28 Intake/Output Intake and Output 04/04/25 07:00 Intake Total 150 ml Balance 150 ml Intake IV Total 150 ml Medications Current Medications Medications Dose Ordered Sig/Daryl Route Start Time Stop Time Status Last Admin Dose Admin Aspirin 81 mg DAILY PO 04/04/25 10:00 04/04/25 10:37 81 MG Atorvastatin Calcium 40 mg HS PO 04/04/25 22:00 Hydralazine HCl 10 mg Q6HP PRN IV 04/04/25 04:45 04/04/25 05:28 10 MG Metoprolol Tartrate 50 mg BID PO 04/04/25 10:00 04/04/25 10:37 50 MG Ceftriaxone Sodium 50 ml @ 100 mls/hr Q24H IV 6/1/25 05:00 Sodium Chloride 1,000 ml @ 60 mls/hr [id number] IV 04/04/25 04:45 04/04/25 04:56 60 MLS/HR Acetaminophen/ Hydrocodone Bitart 1 tab Q4HP PRN PO 04/04/25 04:45 Ondansetron HCl 4 mg Q4HP PRN IV 04/04/25 04:45 Docusate Sodium 100 mg BIDPRN PRN PO 04/04/25 04:45 Acetaminophen 650 mg Q6HP PRN PO 04/04/25 04:45 Morphine Sulfate 2 mg Q4HPRN PRN IV 04/04/25 04:45 Nitroglycerin 0.4 mg Q5MINP PRN SL 04/04/25 05:15 Morphine Sulfate 2 mg Q30M PRN IV 04/04/25 05:15 Heparin Sodium/ Dextrose 250 ml @ 12 mls/hr [id number] IV 04/04/25 09:00 04/04/25 09:00 12 MLS/HR Furosemide 20 mg DAILY IV 04/04/25 11:30 04/04/25 12:16 20 MG Laboratory Results Laboratory Tests 04/03/25 23:12 Chemistry Test 04/03/25 23:12 04/04/25 02:00 Calcium Level 9.8 mg/dL (8.7-10.4) Magnesium Level 1.9 mg/dL (1.6-2.6) Coagulation Test 04/03/25 23:12 04/04/25 07:37 Prothrombin Time 12.4 sec (9.3-11.8) H 12.0 sec (9.3-11.8) H Prothrombin Time INR 1.19 (0.9-1.15) H 1.15 (0.9-1.15) Activated Partial Thromboplast Time 25.6 SEC (24.5-34.5) 35.9 SEC (24.5-34.5) H Lipid panel Test 04/04/25 02:00 Cholesterol Level 127 mg/dL (< 200) HDL Cholesterol 30 mg/dL (40-59) L Triglycerides Level 91 mg/dL (< 150) HgA1c, TSH Test 04/03/25 23:12 04/04/25 02:00 Hemoglobin A1c 6.3 % A1C (<5.7) H Thyroid Stimulating Hormone (TSH) 1.76 uIU/mL (0.55-4.78) Labs and/or images reviewed: Labs reviewed by me, Image(s) reviewed by me Assessment/Plan Assessment/Plan NSTEMI, rule out coronary artery disease patient is scheduled for left heart catheterization on 04-06-25, cardiology consult by Dr. Martinez appreciated Rule out structural heart disease Hypertension Dyslipidemia CVA without residual weakness Tobacco use Amphetamine use Obesity Time spent 45 minutes Plan discussed with: Patient Date of Service: April 04, 2025 Billing Provider: RAYMOND STEWART MD Common Visit Codes: [id number] INP/OBS CARE(HIGH) RAYMOND STEWART MD April 04, 2025 13:17
[2025-04-04 13:46] VITALS: BP 146/110; PULSE 103; RESP 16; TEMP 91.3; O2SAT 98
[2025-04-04 14:07] VITALS: BP 146/110; PULSE 100; PULSE 110; RESP 18; TEMP 95.6; O2SAT 99
--- NOTE | 2025-04-04 14:30 | DVHSR ---
APPROVED REPORT EXAM: Two-dimensional and M-mode echocardiogram with Doppler, color Doppler and Optison. Blood Pressure: 155/118 mmHg INDICATION Evaluate Cardiac Function RISK FACTORS Obesity: Height: 5' 5", Weight: 254 DIMENSIONS LVDd5.3 (3.8-5.7cm)LA (2D)4.5 (1.9-4.0cm)Aortic Root3.1 (2.0-3.7cm) LVDs4.6 (2.5-4.0cm)LA (MM) (1.9-4.0cm)Aortic Cusp Exc1.8 (1.5-2.0cm) EF (%) 25.0 (55-70%)Rt. Atrium5.5 (1.9-4.0cm)Asc. Aorta cm IVSd1.3 (0.7-1.1cm)RV (D) (1.8-2.4cm) PWd1.3 (0.7-1.1cm) Mitral Valve MitralMitral Stenosis E wave1.10m/sMV Mean GR.mmHg E/A ratio0.02D MVAcm2 Aortic Valve Aortic ValveAortic Stenosis V10.60m/Dayanara Mean GR.4mmHg V21.20m/Dayanara Peak GR.6mmHg LVOT Diameter2.0 (1.8-2.4cm)Doppler AVA1.57cm2 Pulmonic Valve V20.70m/s Tricuspid Valve TR Velocity3.00m/s [id number] Conclusion lvef 25% apical thrombus noted, confirmed with optison RV dysfunction and enlargement biatrial enlargement trivial to small pericardial effusion noted
[2025-04-04 15:14] LABS: Basophils # (auto) 0.1 10 ^3/uL (0-0.2); Eosinophils # (auto) 0.2 10 ^3/uL (0-0.8); Eosinophils % (auto) 1.6 % (0.0-7.0); Hematocrit 43.5 % (36.0-46.0); Hemoglobin 14.4 g/dL (12.2-16.2); Lymphocytes % (auto) 38.3 % (10.0-50.0); Mean Corpuscular Hemoglobin 30.7 pg (28.0-32.0); Mean Corpuscular Hgb Conc. 33.2 g/dL (32.0-36.0); Mean Corpuscular Volume 92.3 fL (80.0-100.0); Monocytes # (auto) 0.6 10 ^3/uL (0-1.3); Monocytes % (auto) 5.3 % (0.0-12.0); Neutrophils # (auto) 5.6 10 ^3/uL (1.6-8.6); Neutrophils % (auto) 53.8 % (37.0-80.0); Nucleated Red Blood Cells % 0.2 %; Platelet Count (auto) 202 10^3/uL (140-450); Red Blood Cells 4.71 10^6/uL (4.0-5.20); White Blood Cell 10.5 10^3/uL (4.4-10.8)
[2025-04-04 15:26] LABS: INR 1.12 (0.9-1.15); Partial Thromboplastin Time 39.6 SEC (24.5-34.5); Prothrombin Time 11.7 sec (9.3-11.8)
--- NOTE | 2025-04-04 16:02 | CONS ---
Pharmacy Clinical Information: HEPARIN DRIP RATE INCREASED TO 1400 UNITS/HR = 14 ML/HR PER APTT OF 39.6 (SCRUGGS BTHERAPEUTIC). NEXT APTT DRAW SCHEDULED FOR 2200 PER RX PROTOCOL. GAUTAM DE GUZMAN PHARMACIST April 04, 2025 16:02
[2025-04-04 16:26] VITALS: BP 144/103; PULSE 95; RESP 16; TEMP 97.8; O2SAT 94
[2025-04-04 20:00] VITALS: PULSE 83
[2025-04-04 21:00] VITALS: BP 130/105; PULSE 101; RESP 18; TEMP 98.5; O2SAT 99
[2025-04-04] MEDS: ATORVASTATIN 20 MG TAB PO SCH (21:18)
[2025-04-04 22:39] LABS: INR 1.15 (0.9-1.15); Partial Thromboplastin Time 51.8 SEC (24.5-34.5)
[2025-04-04 23:17] LABS: Urine Bacteria FEW /hpf (None Seen); Urine Blood 3+ /uL (Negative); Urine Clarity Turbid (Clear); Urine Color Yellow (Yellow); Urine Mucus FEW (None Seen); Urine Protein, UAD 1+ (Negative); Urine Squamous Epithelial Cell MANY /hpf (<5); Urine Urobilinogen 2 mg/dL (Negative); Urine WBC 10 /HPF (0-5)
[2025-04-04 23:26] LABS: Amphetamine Screen, Urine Pos (NEGATIVE); Barbiturate Scree,Urine Neg (NEGATIVE); Benzodiazephine Screen, Urine Neg (NEGATIVE); Cannabinoid Screen, Urine Neg (NEGATIVE); Cocaine Screen, Urine Neg (NEGATIVE); Opiate Scree,Urine Neg (NEGATIVE); Phencyclidine Screen, Urine Neg (NEGATIVE)
[2025-04-04] MEDS: MELATONIN 5 MG TAB PO PRN (23:54)
[2025-04-05] VITALS (8 sets, daily range): BP systolic 113–132; BP diastolic 87–101; PULSE 79–94; RESP 17–24; TEMP 96.1–98.6; O2SAT 95–99
[2025-04-05] MEDS: NITROGLYCERIN 0.4 MG SL TAB SL PRN (03:56)
[2025-04-05] MEDS: cefTRIAXone 1GM/50ML D5W 50 ML IV SCH (04:40)
[2025-04-05 06:20] LABS: Basophils # (auto) 0.1 10 ^3/uL (0-0.2); Basophils % (auto) 0.4 % (0.0-2.0); Eosinophils # (auto) 0.1 10 ^3/uL (0-0.8); Eosinophils % (auto) 0.9 % (0.0-7.0); Hematocrit 44.7 % (36.0-46.0); Hemoglobin 14.4 g/dL (12.2-16.2); Lymphocytes # (auto) 6.2 10 ^3/uL (0.4-5.4); Lymphocytes % (auto) 50.5 % (10.0-50.0); Mean Corpuscular Hemoglobin 30.2 pg (28.0-32.0); Mean Corpuscular Hgb Conc. 32.2 g/dL (32.0-36.0); Mean Corpuscular Volume 93.8 fL (80.0-100.0); Monocytes # (auto) 1.1 10 ^3/uL (0-1.3); Monocytes % (auto) 8.6 % (0.0-12.0); Neutrophils # (auto) 4.8 10 ^3/uL (1.6-8.6); Neutrophils % (auto) 39.6 % (37.0-80.0); Nucleated Red Blood Cells % 0.2 %; Platelet Count (auto) 209 10^3/uL (140-450); Red Blood Cells 4.76 10^6/uL (4.0-5.20); White Blood Cell 12.2 10^3/uL (4.4-10.8)
[2025-04-05 06:34] LABS: INR 1.21 (0.9-1.15); Partial Thromboplastin Time 54.6 SEC (24.5-34.5); Prothrombin Time 12.6 sec (9.3-11.8)
[2025-04-05 06:40] LABS: Albumin 3.6 g/dL (3.2-4.8); Anion Gap 10 (5-15); BUN/Creatinine Ratio 15.8 (10.0-20.0); Bilirubin, Total 1.1 mg/dL (0.2-1.0); Blood Urea Nitrogen 16 mg/dL (9-23); Calcium 8.9 mg/dL (8.7-10.4); Carbon Dioxide 23 mmol/L (20-31); Chloride 104 mmol/L (98-107); Glucose 105 mg/dL (74-106); Potassium 4.4 mmol/L (3.5-5.1); Sodium 137 mmol/L (136-145); Total Protein 6.5 g/dL (5.7-8.2)
[2025-04-05 06:41] LABS: Alanine Aminotransferase 71 U/L (7-40); Alkaline Phosphatase 264 U/L (46-116); Aspartate Aminotransferase 100 U/L (13-40)
--- NOTE | 2025-04-05 09:11 | DVHPN2 ---
Reviewed: Care Plan, H&P, Labs, Medications, Previous Orders, Radiology Changes from previous H/P or p: No Changes Eyes: No Pain, No Vision change, No Conjunctivae inflammation, No Eyelid inflammation, No Other, No Redness ENT: No Ear pain, No Ear discharge, No Nose pain, No Nose discharge, No Nose congestion, No Mouth pain, No Mouth swelling, No Throat pain, No Throat swelling, No Other Cardiovascular: Chest Pain; No Palpitations, No Orthopnea, No Paroxysmal Noc. Dyspnea, No Edema, No Lt Headedness, No Other Respiratory: No Cough, No Dry; Shortness of breath; No SOB with excertion, No Wheezing, No Hemoptysis, No Pleuritic Pain, No Sputum; Other (SOB at rest, dizzy spells) Gastrointestinal: No Nausea, No Vomiting, No Abdominal Pain, No Diarrhea, No Constipation, No Melena, No Hematochezia, No Other Genitourinary: No Dysuria, No Frequency, No Incontinence, No Hematuria, No Retention, No Other Musculoskeletal: No other, No neck pain, No shoulder pain, No arm pain, No back pain, No hand pain, No leg pain, No foot pain Skin: No Rash, No Lesions, No Jaundice, No Bruising, No Other Objective Vitals Vital Signs Date Time Temp Pulse Resp B/P (MAP) Pulse Ox O2 Delivery O2 Flow Rate FiO2 04/05/25 08:55 62 118/65 04/05/25 07:50 18 Room Air* 0 21 04/05/25 05:00 96 04/05/25 01:00 98.6 98.6 Intake/Output Intake and Output 04/05/25 07:00 Intake Total 1358 ml Output Total 200 ml Balance 1158 ml Intake Oral 450 ml IV Total 908 ml Output Urine Total 200 ml Medications Current Medications Medications Dose Ordered Sig/Daryl Route Start Time Stop Time Status Last Admin Dose Admin Aspirin 81 mg DAILY PO 04/04/25 10:00 04/04/25 10:37 81 MG Atorvastatin Calcium 40 mg HS PO 04/04/25 22:00 04/04/25 21:18 40 MG Hydralazine HCl 10 mg Q6HP PRN IV 04/04/25 04:45 04/04/25 05:28 10 MG Metoprolol Tartrate 50 mg BID PO 04/04/25 10:00 04/05/25 08:55 50 MG Ceftriaxone Sodium 50 ml @ 100 mls/hr Q24H IV 04/05/25 05:00 04/05/25 04:40 100 MLS/HR Sodium Chloride 1,000 ml @ 60 mls/hr [id number] IV 04/04/25 04:45 04/04/25 04:56 60 MLS/HR Acetaminophen/ Hydrocodone Bitart 1 tab Q4HP PRN PO 04/04/25 04:45 Ondansetron HCl 4 mg Q4HP PRN IV 04/04/25 04:45 Docusate Sodium 100 mg BIDPRN PRN PO 04/04/25 04:45 Acetaminophen 650 mg Q6HP PRN PO 04/04/25 04:45 Morphine Sulfate 2 mg Q4HPRN PRN IV 04/04/25 04:45 Nitroglycerin 0.4 mg Q5MINP PRN SL 04/04/25 05:15 04/05/25 04:08 0.4 MG Morphine Sulfate 2 mg Q30M PRN IV 04/04/25 05:15 Furosemide 20 mg DAILY IV 04/04/25 11:30 04/05/25 08:49 20 MG Heparin Sodium/ Dextrose 250 ml @ 14 mls/hr [id number] IV 04/04/25 16:00 04/04/25 21:26 14 MLS/HR Melatonin 5 mg HS PRN PO 04/04/25 23:45 04/04/25 23:54 5 MG Laboratory Results Laboratory Tests 04/05/25 06:13 Chemistry Test 04/05/25 06:13 Albumin 3.6 g/dL (3.2-4.8) Calcium Level 8.9 mg/dL (8.7-10.4) Total Protein 6.5 g/dL (5.7-8.2) Coagulation Test 04/04/25 14:56 04/04/25 22:06 04/05/25 06:13 Prothrombin Time 11.7 sec (9.3-11.8) 12.0 sec (9.3-11.8) H 12.6 sec (9.3-11.8) H Prothrombin Time INR 1.12 (0.9-1.15) 1.15 (0.9-1.15) 1.21 (0.9-1.15) H Activated Partial Thromboplast Time 39.6 SEC (24.5-34.5) H 51.8 SEC (24.5-34.5) H 54.6 SEC (24.5-34.5) H LFT Test 04/05/25 06:13 Alanine Aminotransferase (ALT) 71 U/L (7-40) H Alkaline Phosphatase 264 U/L (46-116) H Aspartate Amino Transferase (AST) 100 U/L (13-40) H Total Bilirubin 1.1 mg/dL (0.2-1.0) H Urinalysis Test 04/04/25 22:50 Urine Color Yellow (Yellow) Urine Clarity Turbid (Clear) H Urine pH 6.0 (5.0-9.0) Urine Specific [place] 1.020 (1.001-1.035) Urine Protein 1+ (Negative) H Urine Ketones Negative (Negative) Urine Blood 3+ /uL (Negative) H Urine Nitrite Negative (Negative) Urine Bilirubin Negative (Negative) Urine Urobilinogen 2 mg/dL (Negative) H Urine Leukocyte Esterase Negative /uL (Negative) Urine RBC 7 /hpf (0 - 4) Urine Microscopic WBC 10 /HPF (0-5) H Urine Squamous Epithelial Cells Many /hpf (<5) Urine Bacteria Few /hpf (None Seen) H Urine Mucus Few (None Seen) Urine Glucose Normal mg/dL (Normal) Urine Test Negative (Negative) Labs and/or images reviewed: Labs reviewed by me, Image(s) reviewed by me Assessment/Plan Assessment/Plan NSTEMI, rule out coronary artery disease patient is scheduled for left heart catheterization on 04-06-25, cardiology consult by Dr. 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
--- NOTE | 2025-04-05 10:08 | DVHPN2 ---
Progress Note Date Seen: Apr 05, 2025 Medical Necessity Reason Pt with a Central, PICC or Fol: No Objective vital signs Vital Sign Date Time Temp Pulse Resp B/P (MAP) Pulse Ox O2 Delivery O2 Flow Rate FiO2 04/05/25 08:55 62 118/65 04/05/25 07:50 18 Room Air* 0 21 04/05/25 05:00 96 04/05/25 01:00 98.6 98.6 Total Intake and Output 04/04/25 04/04/25 04/05/25 15:00 23:00 07:00 Intake Total 320 ml 1038 ml Output Total 200 ml Balance 120 ml 1038 ml medications Current Medications Medications Dose Ordered Sig/Daryl Route Start Time Stop Time Status Last Admin Dose Admin Aspirin 81 mg DAILY PO 04/04/25 10:00 04/04/25 10:37 81 MG Atorvastatin Calcium 40 mg HS PO 04/04/25 22:00 04/04/25 21:18 40 MG Hydralazine HCl 10 mg Q6HP PRN IV 04/04/25 04:45 04/04/25 05:28 10 MG Metoprolol Tartrate 50 mg BID PO 04/04/25 10:00 04/05/25 08:55 50 MG Ceftriaxone Sodium 50 ml @ 100 mls/hr Q24H IV 04/05/25 05:00 04/05/25 04:40 100 MLS/HR Sodium Chloride 1,000 ml @ 60 mls/hr [id number] IV 04/04/25 04:45 04/04/25 04:56 60 MLS/HR Acetaminophen/ Hydrocodone Bitart 1 tab Q4HP PRN PO 04/04/25 04:45 Ondansetron HCl 4 mg Q4HP PRN IV 04/04/25 04:45 Docusate Sodium 100 mg BIDPRN PRN PO 04/04/25 04:45 Acetaminophen 650 mg Q6HP PRN PO 04/04/25 04:45 Morphine Sulfate 2 mg Q4HPRN PRN IV 04/04/25 04:45 Nitroglycerin 0.4 mg Q5MINP PRN SL 04/04/25 05:15 04/05/25 04:08 0.4 MG Morphine Sulfate 2 mg Q30M PRN IV 04/04/25 05:15 Furosemide 20 mg DAILY IV 04/04/25 11:30 04/05/25 08:49 20 MG Heparin Sodium/ Dextrose 250 ml @ 14 mls/hr [id number] IV 04/04/25 16:00 04/04/25 21:26 14 MLS/HR Melatonin 5 mg HS PRN PO 04/04/25 23:45 04/04/25 23:54 5 MG Examination: GENERAL:Abnormal, HEENT:Abnormal, LUNGS:Abnormal, CVS:Abnormal, ABDOMEN:Abnormal laboratory and microbiology Laboratory Tests 04/05/25 06:13 Test 04/05/25 06:13 Range/Units Serum Glucose 105 74-106 mg/dL Problem List/Assessment/Plan Problem List/Assessment/Plan severe chf meth abuse non compliance LV thrombus nstemi morbid obesity recommend [facility] tomorrow to assess for cad pt is very high risk pt given active LV thrombus which was not diagnosed at [facility] last month so possibly new? will hold heparin at 0500 risk of cva very high risk pt , coupled with leaving AMA, heavy drug use, morbid obesity and totally medically non compliant, high risk for cath Plan discussed with: Patient My Orders My Orders Orders - LAURA CLEARY MD Procedure Category Date Status Time Cl Left Heart Cath CL 04/04/25 Logged 11:24 Obtain Informed YAQUELIN 04/04/25 In Process Consent For Cc 11:24 Furosemide Injection PHA 04/04/25 In Process (Lasix Injection) 11:30 Date of Service: Apr 05, 2025 Billing Provider: LAURA CLEARY MD Common Visit Codes: NOT BILLABLE LAURA CLEARY MD Apr 05, 2025 10:08
[2025-04-05 12:56] LABS: INR 1.23 (0.9-1.15); Partial Thromboplastin Time 56.1 SEC (24.5-34.5); Prothrombin Time 12.8 sec (9.3-11.8)
[2025-04-05] MEDS: HEPARIN DRIP/D5W 100UNITS/ML 250 ML IV SCH ×2 (14:32→19:27)
--- NOTE | 2025-04-05 17:07 | ECG ---
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
[2025-04-06] VITALS (12 sets, daily range): BP systolic 131–150; BP diastolic 93–117; PULSE 74–102; RESP 16–21; TEMP 95.9–98.9; O2SAT 91–99
[2025-04-06 07:40] LABS: Basophils # (auto) 0 10 ^3/uL (0-0.2); Basophils % (auto) 0.4 % (0.0-2.0); Eosinophils # (auto) 0.1 10 ^3/uL (0-0.8); Eosinophils % (auto) 0.8 % (0.0-7.0); Hematocrit 43.8 % (36.0-46.0); Hemoglobin 13.9 g/dL (12.2-16.2); Lymphocytes # (auto) 5.8 10 ^3/uL (0.4-5.4); Lymphocytes % (auto) 48.5 % (10.0-50.0); Mean Corpuscular Hemoglobin 30.1 pg (28.0-32.0); Mean Corpuscular Hgb Conc. 31.8 g/dL (32.0-36.0); Mean Corpuscular Volume 94.7 fL (80.0-100.0); Monocytes # (auto) 0.8 10 ^3/uL (0-1.3); Monocytes % (auto) 6.5 % (0.0-12.0); Neutrophils # (auto) 5.3 10 ^3/uL (1.6-8.6); Neutrophils % (auto) 43.8 % (37.0-80.0); Nucleated Red Blood Cells % 0.2 %; Platelet Count (auto) 224 10^3/uL (140-450); Red Blood Cells 4.63 10^6/uL (4.0-5.20); Red Cell Distribution Width 16.7 % (11.8-14.3)
[2025-04-06 07:53] LABS: INR 1.29 (0.9-1.15); Partial Thromboplastin Time 39.6 SEC (24.5-34.5); Prothrombin Time 13.3 sec (9.3-11.8)
[2025-04-06 07:54] LABS: Anion Gap 7 (5-15); Carbon Dioxide 25 mmol/L (20-31); Chloride 106 mmol/L (98-107); Potassium 4.5 mmol/L (3.5-5.1); Sodium 138 mmol/L (136-145)
[2025-04-06 07:56] LABS: Calcium 9.4 mg/dL (8.7-10.4)
[2025-04-06 08:00] LABS: BUN/Creatinine Ratio 18.6 (10.0-20.0); Blood Urea Nitrogen 19 mg/dL (9-23)
[2025-04-06 08:01] LABS: Glucose 111 mg/dL (74-106)
--- NOTE | 2025-04-06 08:19 | ECG ---
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
--- NOTE | 2025-04-06 09:18 | DVHPN2 ---
Reviewed: Care Plan, H&P, Labs, Medications, Previous Orders, Radiology Changes from previous H/P or p: No Changes Eyes: No Pain, No Vision change, No Conjunctivae inflammation, No Eyelid inflammation, No Other, No Redness ENT: No Ear pain, No Ear discharge, No Nose pain, No Nose discharge, No Nose congestion, No Mouth pain, No Mouth swelling, No Throat pain, No Throat swelling, No Other Cardiovascular: Chest Pain; No Palpitations, No Orthopnea, No Paroxysmal Noc. Dyspnea, No Edema, No Lt Headedness, No Other Respiratory: No Cough, No Dry; Shortness of breath; No SOB with excertion, No Wheezing, No Hemoptysis, No Pleuritic Pain, No Sputum; Other (SOB at rest, dizzy spells) Gastrointestinal: No Nausea, No Vomiting, No Abdominal Pain, No Diarrhea, No Constipation, No Melena, No Hematochezia, No Other Genitourinary: No Dysuria, No Frequency, No Incontinence, No Hematuria, No Retention, No Other Musculoskeletal: No other, No neck pain, No shoulder pain, No arm pain, No back pain, No hand pain, No leg pain, No foot pain Skin: No Rash, No Lesions, No Jaundice, No Bruising, No Other Objective Vitals Vital Signs Date Time Temp Pulse Resp B/P (MAP) Pulse Ox O2 Delivery O2 Flow Rate FiO2 04/06/25 09:08 95 16 150/117 (128) 91 04/06/25 05:00 95.9 95.9 04/05/25 20:00 Nasal Cannula* 2 28 Intake/Output Intake and Output 04/06/25 07:00 Intake Total 760 ml Balance 760 ml Intake Oral 640 ml IV Total 120 ml # Voids 4 # Bowel Movements 2 Medications Current Medications Medications Dose Ordered Sig/Daryl Route Start Time Stop Time Status Last Admin Dose Admin Aspirin 81 mg DAILY PO 04/04/25 10:00 04/04/25 10:37 81 MG Atorvastatin Calcium 40 mg HS PO 04/04/25 22:00 04/05/25 21:02 40 MG Hydralazine HCl 10 mg Q6HP PRN IV 04/04/25 04:45 04/04/25 05:28 10 MG Metoprolol Tartrate 50 mg BID PO 04/04/25 10:00 04/05/25 21:02 50 MG Ceftriaxone Sodium 50 ml @ 100 mls/hr Q24H IV 04/05/25 05:00 04/06/25 05:34 100 MLS/HR Sodium Chloride 1,000 ml @ 60 mls/hr [id number] IV 04/04/25 04:45 04/05/25 14:13 60 MLS/HR Acetaminophen/ Hydrocodone Bitart 1 tab Q4HP PRN PO 04/04/25 04:45 Ondansetron HCl 4 mg Q4HP PRN IV 04/04/25 04:45 Docusate Sodium 100 mg BIDPRN PRN PO 04/04/25 04:45 Acetaminophen 650 mg Q6HP PRN PO 04/04/25 04:45 Morphine Sulfate 2 mg Q4HPRN PRN IV 04/04/25 04:45 Nitroglycerin 0.4 mg Q5MINP PRN SL 04/04/25 05:15 04/05/25 04:08 0.4 MG Morphine Sulfate 2 mg Q30M PRN IV 04/04/25 05:15 Furosemide 20 mg DAILY IV 04/04/25 11:30 04/05/25 08:49 20 MG Melatonin 5 mg HS PRN PO 04/04/25 23:45 04/04/25 23:54 5 MG Heparin Sodium/ Dextrose 250 ml @ 14 mls/hr [id number] IV 04/05/25 19:30 04/05/25 19:27 14 MLS/HR Laboratory Results Laboratory Tests 04/06/25 06:19 Chemistry Test 04/06/25 06:19 Calcium Level 9.4 mg/dL (8.7-10.4) Coagulation Test 04/05/25 12:34 04/06/25 06:19 Prothrombin Time 12.8 sec (9.3-11.8) H 13.3 sec (9.3-11.8) H Prothrombin Time INR 1.23 (0.9-1.15) H 1.29 (0.9-1.15) H Activated Partial Thromboplast Time 56.1 SEC (24.5-34.5) H 39.6 SEC (24.5-34.5) H Urinalysis Test 04/04/25 22:50 Urine Color Yellow (Yellow) Urine Clarity Turbid (Clear) H Urine pH 6.0 (5.0-9.0) Urine Specific [place] 1.020 (1.001-1.035) Urine Protein 1+ (Negative) H Urine Ketones Negative (Negative) Urine Blood 3+ /uL (Negative) H Urine Nitrite Negative (Negative) Urine Bilirubin Negative (Negative) Urine Urobilinogen 2 mg/dL (Negative) H Urine Leukocyte Esterase Negative /uL (Negative) Urine RBC 7 /hpf (0 - 4) Urine Microscopic WBC 10 /HPF (0-5) H Urine Squamous Epithelial Cells Many /hpf (<5) Urine Bacteria Few /hpf (None Seen) H Urine Mucus Few (None Seen) Urine Glucose Normal mg/dL (Normal) Urine Test Negative (Negative) Labs and/or images reviewed: Labs reviewed by me, Image(s) reviewed by me Assessment/Plan Assessment/Plan NSTEMI, rule out coronary artery disease patient is scheduled for left heart catheterization on 04-06-25, cardiology consult by Dr. 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 Plan discussed with: Patient My Orders Orders - RAYMOND STEWART MD Procedure Category Date Status Time Type And Screen BBK 04/06/25 In Process 03:05 Date of Service: Apr 06, 2025 Billing Provider: RAYMOND STEWART MD Common Visit Codes: [id number] INP/OBS CARE(HIGH) RAYMOND STEWART MD Apr 06, 2025 09:18
[2025-04-06] MEDS: IODIXANOL 320MG/ML 100ML BTL IV ONE (11:09)
[2025-04-06] MEDS: HEPARIN SODIUM (PORCINE) 5000 UNITS/ML 1ML VIAL ONE (11:12)
[2025-04-06] MEDS: VERAPAMIL 2.5MG/ML INJ 2ML VIAL IV ONE (11:12)
[2025-04-06] MEDS: MIDAZOLAM HCL 2MG/2ML 2ml VIAL (1mg/ml) ONE (11:13)
[2025-04-06] MEDS: fentaNYL CITRATE 100 MCG/2 ML VL ONE (11:13)
[2025-04-06] MEDS: ANGIOMAX 250 MG VIAL IV ONE (11:40)
[2025-04-06] MEDS: LIDOCAINE 2%HCL (LOCAL ANESTH.) INJ 20ML MDV ONE (11:40)
[2025-04-06] MEDS: SODIUM CHL 0.9% 0 ML ONE (11:40)
--- NOTE | 2025-04-06 11:40 | DVHOP2 ---
Operative Report Operative Report CARDIAC FAMILY SERVICES SPECIALIST PROCEDURE REPORT [place], [place] Date of Service: 04/06/25 Engineer Rf Deployment: Laura Cleayr MD PROCEDURES PERFORMED: Coronary angiogram, left heart catheterization, conscious sedation administration and supervision, less than 15 minutes; fluoroscopy use and interpretation. US guided vascular access saved to pacs system PREOPERATIVE DIAGNOSES: nstem, severe chf POSTOP DIAGNOSIS: NICM DESCRIPTION OF PROCEDURE: The patient or appropriate family signed informed consent understanding the risks, benefits and alternatives of the procedure, they wished to proceed. The patient was brought to the cardiac tanbark laborer in n.p.o. state. The patient was prepped in a sterile fashion. Sedation was used per cardiac cath protocol. I administered 2 mL of 2% lidocaine to the right wrist. With an antegrade front wall puncture. I cannulated the right radial artery and placed a 6-[place] slender. Next, an intra-arterial spasmolytic was administered. Next, a - 5[place] catheter ane and were used for coronary angiogram and LVEDP measurement and pressure pullback. At the completion of procedure, all guides and wires were removed, and there were no immediate complications. 5000 U of iv heparin given . FINDINGS: RCA: Moderate vessel off the right sinus of Valsalva, there is no severe flow limiting stenosis. LEFT MAIN: Moderate size left main, it bifurcates into LAD and circumflex. no stenosis CIRCUMFLEX: Moderate caliber vessel coming off the left main with no flow limiting stenosis. LAD: LAD is a moderate caliber vessel coming of the left main. no stenosis LVEDP of 25 mmhg CONCLUSIONS: 1. severe NICM PLAN: Aggressive risk factor modification and medical management for the patient. GDMT for HF off label eliquis for LV clot LAURA CLEARY MD Apr 06, 2025 11:40
--- NOTE | 2025-04-06 11:42 | DVHPN2 ---
Progress Note Date Seen: Apr 06, 2025 Medical Necessity Reason Pt with a Central, PICC or Fol: No Subjective Patient reports: Feels better Objective vital signs Vital Sign Date Time Temp Pulse Resp B/P (MAP) Pulse Ox O2 Delivery O2 Flow Rate FiO2 04/06/25 09:08 95 16 150/117 (128) 91 04/06/25 08:00 Nasal Cannula* 2 28 04/06/25 05:00 95.9 95.9 Total Intake and Output 04/05/25 04/05/25 04/06/25 15:00 23:00 07:00 Intake Total 400 ml 360 ml Balance 400 ml 360 ml medications Current Medications Medications Dose Ordered Sig/Daryl Route Start Time Stop Time Status Last Admin Dose Admin Aspirin 81 mg DAILY PO 04/04/25 10:00 04/04/25 10:37 81 MG Atorvastatin Calcium 40 mg HS PO 04/04/25 22:00 04/05/25 21:02 40 MG Hydralazine HCl 10 mg Q6HP PRN IV 04/04/25 04:45 04/04/25 05:28 10 MG Metoprolol Tartrate 50 mg BID PO 04/04/25 10:00 04/05/25 21:02 50 MG Ceftriaxone Sodium 50 ml @ 100 mls/hr Q24H IV 04/05/25 05:00 04/06/25 05:34 100 MLS/HR Sodium Chloride 1,000 ml @ 60 mls/hr [id number] IV 04/04/25 04:45 04/05/25 14:13 60 MLS/HR Acetaminophen/ Hydrocodone Bitart 1 tab Q4HP PRN PO 04/04/25 04:45 Ondansetron HCl 4 mg Q4HP PRN IV 04/04/25 04:45 Docusate Sodium 100 mg BIDPRN PRN PO 04/04/25 04:45 Acetaminophen 650 mg Q6HP PRN PO 04/04/25 04:45 Morphine Sulfate 2 mg Q4HPRN PRN IV 04/04/25 04:45 Nitroglycerin 0.4 mg Q5MINP PRN SL 04/04/25 05:15 04/05/25 04:08 0.4 MG Morphine Sulfate 2 mg Q30M PRN IV 04/04/25 05:15 Furosemide 20 mg DAILY IV 04/04/25 11:30 04/05/25 08:49 20 MG Melatonin 5 mg HS PRN PO 04/04/25 23:45 04/04/25 23:54 5 MG Heparin Sodium/ Dextrose 250 ml @ 14 mls/hr [id number] IV 04/05/25 19:30 04/05/25 19:27 14 MLS/HR Examination: GENERAL:Abnormal, HEENT:Abnormal, LUNGS:Abnormal, CVS:Abnormal, ABDOMEN:Abnormal laboratory and microbiology Laboratory Tests 04/06/25 06:19 Test 04/06/25 06:19 Range/Units Serum Glucose 111 H 74-106 mg/dL Problem List/Assessment/Plan Problem List/Assessment/Plan severe chf meth abuse non compliance LV thrombus nstemi morbid obesity recommend [facility] tomorrow to assess for cad pt is very high risk pt given active LV thrombus which was not diagnosed at [facility] last month so possibly new? will hold heparin at 0500 risk of cva very high risk pt , coupled with leaving AMA, heavy drug use, morbid obesity and totally medically non compliant, high risk for cath sp cath no severe cad recommend GDMT iv lasix BB entresto recommend off label eliquis 5 mg po bid use for LV thrombus with 1 week load (10 bid) typically coumadin is recommended but the likelihood of her faithfully taking this is very low continued drug use will result in pt aware Plan discussed with: Patient My Orders My Orders Orders - LAURA CLEARY MD Procedure Category Date Status Time Heparin Per Pharmacy YAQUELIN 04/05/25 In Process Protocol 13:45 Heparin Drip/D5w PHA 04/05/25 In Process 100units/Ml 19:30 Date of Service: Apr 06, 2025 Billing Provider: LAURA CLEARY MD Common Visit Codes: NOT BILLABLE LAURA CLEARY MD Apr 06, 2025 11:42
[2025-04-07 01:00] VITALS: BP 141/103; PULSE 101; RESP 17; TEMP 97.5; O2SAT 95
[2025-04-07 05:00] VITALS: BP 97/73; PULSE 77; RESP 19; TEMP 97.6; O2SAT 92
[2025-04-07 07:05] LABS: Basophils # (auto) 0 10 ^3/uL (0-0.2); Basophils % (auto) 0.3 % (0.0-2.0); Eosinophils # (auto) 0.1 10 ^3/uL (0-0.8); Eosinophils % (auto) 0.7 % (0.0-7.0); Hematocrit 41.1 % (36.0-46.0); Hemoglobin 13.5 g/dL (12.2-16.2); Lymphocytes # (auto) 4.6 10 ^3/uL (0.4-5.4); Lymphocytes % (auto) 39.7 % (10.0-50.0); Mean Corpuscular Hemoglobin 30.5 pg (28.0-32.0); Mean Corpuscular Hgb Conc. 32.8 g/dL (32.0-36.0); Mean Corpuscular Volume 93.1 fL (80.0-100.0); Monocytes # (auto) 0.9 10 ^3/uL (0-1.3); Monocytes % (auto) 7.9 % (0.0-12.0); Neutrophils % (auto) 51.4 % (37.0-80.0); Nucleated Red Blood Cells % 0.1 %; Platelet Count (auto) 219 10^3/uL (140-450); Red Blood Cells 4.41 10^6/uL (4.0-5.20); Red Cell Distribution Width 16.2 % (11.8-14.3); White Blood Cell 11.7 10^3/uL (4.4-10.8)
[2025-04-07 08:00] VITALS: PULSE 89; RESP 19
--- NOTE | 2025-04-07 09:15 | MEDREC ---
[facility] ASP Intervention Section I [facility] Intervention: Review yobani of ABX 48h AIO (PLEASE CONSIDER D/C ANTIBIOTIC IN ABSENCE OF BACTERIAL INFECTION) YAMILE MEDRANO PHARMACIST Apr 07, 2025 09:14
[2025-04-07 09:24] VITALS: BP 150/111; PULSE 83; RESP 19; TEMP 98.5; O2SAT 99
--- NOTE | 2025-04-07 09:36 | DVHPN2 ---
Reviewed: Care Plan, H&P, Labs, Medications, Previous Orders, Radiology Changes from previous H/P or p: No Changes Eyes: No Pain, No Vision change, No Conjunctivae inflammation, No Eyelid inflammation, No Other, No Redness ENT: No Ear pain, No Ear discharge, No Nose pain, No Nose discharge, No Nose congestion, No Mouth pain, No Mouth swelling, No Throat pain, No Throat swelling, No Other Cardiovascular: Chest Pain; No Palpitations, No Orthopnea, No Paroxysmal Noc. Dyspnea, No Edema, No Lt Headedness, No Other Respiratory: No Cough, No Dry; Shortness of breath; No SOB with excertion, No Wheezing, No Hemoptysis, No Pleuritic Pain, No Sputum; Other (SOB at rest, dizzy spells) Gastrointestinal: No Nausea, No Vomiting, No Abdominal Pain, No Diarrhea, No Constipation, No Melena, No Hematochezia, No Other Genitourinary: No Dysuria, No Frequency, No Incontinence, No Hematuria, No Retention, No Other Musculoskeletal: No other, No neck pain, No shoulder pain, No arm pain, No back pain, No hand pain, No leg pain, No foot pain Skin: No Rash, No Lesions, No Jaundice, No Bruising, No Other Objective Vitals Vital Signs Date Time Temp Pulse Resp B/P (MAP) Pulse Ox O2 Delivery O2 Flow Rate FiO2 04/07/25 09:24 98.5 83 19 150/111 (124) 99 98.5 04/06/25 20:00 Nasal Cannula* 2 28 Intake/Output Intake and Output 04/07/25 07:00 Intake Total 1040 ml Balance 1040 ml Intake Oral 650 ml IV Total 390 ml # Voids 9 # Bowel Movements 3 Medications Current Medications Medications Dose Ordered Sig/Daryl Route Start Time Stop Time Status Last Admin Dose Admin Aspirin 81 mg DAILY PO 04/04/25 10:00 04/04/25 10:37 81 MG Atorvastatin Calcium 40 mg HS PO 04/04/25 22:00 04/06/25 21:48 40 MG Hydralazine HCl 10 mg Q6HP PRN IV 04/04/25 04:45 04/04/25 05:28 10 MG Metoprolol Tartrate 50 mg BID PO 04/04/25 10:00 04/06/25 21:48 50 MG Ceftriaxone Sodium 50 ml @ 100 mls/hr Q24H IV 04/05/25 05:00 04/07/25 04:55 100 MLS/HR Sodium Chloride 1,000 ml @ 60 mls/hr [id number] IV 04/04/25 04:45 04/05/25 14:13 60 MLS/HR Acetaminophen/ Hydrocodone Bitart 1 tab Q4HP PRN PO 04/04/25 04:45 Ondansetron HCl 4 mg Q4HP PRN IV 04/04/25 04:45 Docusate Sodium 100 mg BIDPRN PRN PO 04/04/25 04:45 Acetaminophen 650 mg Q6HP PRN PO 04/04/25 04:45 Morphine Sulfate 2 mg Q4HPRN PRN IV 04/04/25 04:45 Nitroglycerin 0.4 mg Q5MINP PRN SL 04/04/25 05:15 04/05/25 04:08 0.4 MG Morphine Sulfate 2 mg Q30M PRN IV 04/04/25 05:15 Furosemide 20 mg DAILY IV 04/04/25 11:30 04/05/25 08:49 20 MG Melatonin 5 mg HS PRN PO 04/04/25 23:45 04/04/25 23:54 5 MG Laboratory Results Laboratory Tests 04/06/25 06:19 04/07/25 05:58 Urinalysis Test 04/04/25 22:50 Urine Color Yellow (Yellow) Urine Clarity Turbid (Clear) H Urine pH 6.0 (5.0-9.0) Urine Specific [place] 1.020 (1.001-1.035) Urine Protein 1+ (Negative) H Urine Ketones Negative (Negative) Urine Blood 3+ /uL (Negative) H Urine Nitrite Negative (Negative) Urine Bilirubin Negative (Negative) Urine Urobilinogen 2 mg/dL (Negative) H Urine Leukocyte Esterase Negative /uL (Negative) Urine RBC 7 /hpf (0 - 4) Urine Microscopic WBC 10 /HPF (0-5) H Urine Squamous Epithelial Cells Many /hpf (<5) Urine Bacteria Few /hpf (None Seen) H Urine Mucus Few (None Seen) Urine Glucose Normal mg/dL (Normal) Urine Test Negative (Negative) Labs and/or images reviewed: Labs reviewed by me, Image(s) reviewed by me Assessment/Plan Assessment/Plan NSTEMI, coronary artery disease ruled out by left heart catheterization Nonischemic cardiomyopathy Rule out structural heart disease ejection fraction 25% Severe congestive heart failure: Lasix LV thrombus treated with heparin drip Hypertension Dyslipidemia 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
[2025-04-07] MEDS ORDERED: ASPI1TAB19 PO (09:47)
[2025-04-07] MEDS ORDERED: FURO1TAB31 PO (09:47)
[2025-04-07] MEDS ORDERED: ATOR-507 PO (09:47)
[2025-04-07] MEDS ORDERED: METO-158 PO (09:47)
--- NOTE | 2025-04-07 09:50 | DVHDS2 ---
Discharge Summary Date of Admission April 04, 2025 at 05:15 Date of Discharge: Apr 07, 2025 Admitting Diagnosis Chest pain Wounds: Left heart catheterization Labs/Diagnostic Data: Laboratory Results Test 04/07/25 05:58 04/06/25 06:19 04/05/25 06:13 04/04/25 22:50 White Blood Count 11.7 10^3/uL (4.4-10.8) Red Blood Count 4.41 10^6/uL (4.0-5.20) Hemoglobin 13.5 g/dL (12.2-16.2) Hematocrit 41.1 % (36.0-46.0) Mean Corpuscular Volume 93.1 fL (80.0-100.0) Mean Corpuscular Hemoglobin 30.5 pg (28.0-32.0) Mean Corpuscular Hemoglobin Concent 32.8 g/dL (32.0-36.0) Red Cell Distribution Width 16.2 % (11.8-14.3) Platelet Count 219 10^3/uL (140-450) Mean Platelet Volume 9.3 fL (6.9-10.8) Neutrophils (%) (Auto) 51.4 % (37.0-80.0) Lymphocytes (%) (Auto) 39.7 % (10.0-50.0) Monocytes (%) (Auto) 7.9 % (0.0-12.0) Eosinophils (%) (Auto) 0.7 % (0.0-7.0) Basophils (%) (Auto) 0.3 % (0.0-2.0) Neutrophils # (Auto) 6.0 10 ^3/uL (1.6-8.6) Lymphocytes # (Auto) 4.6 10 ^3/uL (0.4-5.4) Monocytes # (Auto) 0.9 10 ^3/uL (0-1.3) Eosinophils # (Auto) 0.1 10 ^3/uL (0-0.8) Basophils # (Auto) 0 10 ^3/uL (0-0.2) Nucleated Red Blood Cells 0.1 % Prothrombin Time 13.3 sec (9.3-11.8) Prothrombin Time INR 1.29 (0.9-1.15) Activated Partial Thromboplast Time 39.6 SEC (24.5-34.5) Sodium Level 138 mmol/L (136-145) Potassium Level 4.5 mmol/L (3.5-5.1) Chloride Level 106 mmol/L (98-107) Carbon Dioxide Level 25 mmol/L (20-31) Anion Gap 7 (5-15) Blood Urea Nitrogen 19 mg/dL (9-23) Creatinine 1.02 mg/dL (0.550-1.02) Glomerular Filtration Rate Calc 71 mL/min (>90) BUN/Creatinine Ratio 18.6 (10.0-20.0) Serum Glucose 111 mg/dL (74-106) Calcium Level 9.4 mg/dL (8.7-10.4) Total Bilirubin 1.1 mg/dL (0.2-1.0) Aspartate Amino Transferase (AST) 100 U/L (13-40) Alanine Aminotransferase (ALT) 71 U/L (7-40) Alkaline Phosphatase 264 U/L (46-116) Total Protein 6.5 g/dL (5.7-8.2) Albumin 3.6 g/dL (3.2-4.8) Urine Color Yellow (Yellow) Urine Clarity Turbid (Clear) Urine pH 6.0 (5.0-9.0) Urine Specific [place] 1.020 (1.001-1.035) Urine Protein 1+ (Negative) Urine Ketones Negative (Negative) Urine Blood 3+ /uL (Negative) Urine Nitrite Negative (Negative) Urine Bilirubin Negative (Negative) Urine Urobilinogen 2 mg/dL (Negative) Urine Leukocyte Esterase Negative /uL (Negative) Urine RBC 7 /hpf (0 - 4) Urine Microscopic WBC 10 /HPF (0-5) Urine Squamous Epithelial Cells Many /hpf (<5) Urine Bacteria Few /hpf (None Seen) Urine Mucus Few (None Seen) Urine Glucose Normal mg/dL (Normal) Urine Test Negative (Negative) Urine Opiates Screen Neg (NEGATIVE) Urine Fentanyl Screen Neg (NEGATIVE) Urine Barbiturates Screen Neg (NEGATIVE) Urine Phencyclidine Screen Neg (NEGATIVE) Urine Amphetamines Screen Pos (NEGATIVE) Urine Benzodiazepines Screen Neg (NEGATIVE) Urine Cocaine Screen Neg (NEGATIVE) Urine Cannabinoids Screen Neg (NEGATIVE) Test 04/04/25 02:00 04/03/25 23:34 04/03/25 23:12 Magnesium Level 1.9 mg/dL (1.6-2.6) Troponin I High Sensitivity 4146 ng/L (</=34) Triglycerides Level 91 mg/dL (< 150) Cholesterol Level 127 mg/dL (< 200) LDL Cholesterol 89 mg/dL (< 100) HDL Cholesterol 30 mg/dL (40-59) Thyroid Stimulating Hormone (TSH) 1.76 uIU/mL (0.55-4.78) POC Glucose 110 mg/dl (70-106) Hemoglobin A1c 6.3 % A1C (<5.7) Other Laboratory Tests 04/07/25 05:58 04/06/25 06:19 Brief Hx & Hospital Course: 39-year-old female with a history of hypertension hypercholesterolemia 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 Left heart catheterization by Dr. Martinez coronary artery disease was ruled out diagnosis nonischemic cardiomyopathy congestive heart failure with the ejection fraction 25 percent treated with Lasix LV thrombus treated with a heparin drip which has resolved being discharged home in stable condition . Advised to stop using methamphetamine follow up with the primary Dr and merchandise flow associate medications transmitted to the pharmacy Consults/Reason for consult Cardiology Dr. 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 Martinez in two weeks Medications: Aspirin Lipitor Metoprolol tartrate Lasix Transmitted to [facility] (Time taken for discharge summary 35 minutes) Discharge Statement: "Patient was advised to return to the ER or call 911 if any headaches, dizziness, shortness of breath, chest pain, abdominal pain, bleeding, fevers, or worsening of medical condition. Patient was counseled about treatment plan, medications, possible side effects, patientverbalized understanding. All questions were answered to the best of my ability. 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
--- NOTE | 2025-04-07 12:37 | DVHPN2 ---
Progress Note Date Seen: Apr 07, 2025 Medical Necessity Reason Pt with a Central, PICC or Fol: No Objective vital signs Vital Sign Date Time Temp Pulse Resp B/P (MAP) Pulse Ox O2 Delivery O2 Flow Rate FiO2 04/07/25 10:47 92 139/107 04/07/25 09:24 98.5 19 99 98.5 04/07/25 08:00 Room Air* 0 21 Total Intake and Output 04/06/25 04/06/25 04/07/25 15:00 23:00 07:00 Intake Total 300 ml 740 ml Balance 300 ml 740 ml medications Current Medications Medications Dose Ordered Sig/Drayl Route Start Time Stop Time Status Last Admin Dose Admin Aspirin 81 mg DAILY PO 04/04/25 10:00 04/07/25 10:47 81 MG Atorvastatin Calcium 40 mg HS PO 04/04/25 22:00 04/06/25 21:48 40 MG Hydralazine HCl 10 mg Q6HP PRN IV 04/04/25 04:45 04/04/25 05:28 10 MG Metoprolol Tartrate 50 mg BID PO 04/04/25 10:00 04/07/25 10:47 50 MG Ceftriaxone Sodium 50 ml @ 100 mls/hr Q24H IV 04/05/25 05:00 04/07/25 04:55 100 MLS/HR Sodium Chloride 1,000 ml @ 60 mls/hr [id number] IV 04/04/25 04:45 04/05/25 14:13 60 MLS/HR Acetaminophen/ Hydrocodone Bitart 1 tab Q4HP PRN PO 04/04/25 04:45 Ondansetron HCl 4 mg Q4HP PRN IV 04/04/25 04:45 Docusate Sodium 100 mg BIDPRN PRN PO 04/04/25 04:45 Acetaminophen 650 mg Q6HP PRN PO 04/04/25 04:45 Morphine Sulfate 2 mg Q4HPRN PRN IV 04/04/25 04:45 Nitroglycerin 0.4 mg Q5MINP PRN SL 04/04/25 05:15 04/05/25 04:08 0.4 MG Morphine Sulfate 2 mg Q30M PRN IV 04/04/25 05:15 Furosemide 20 mg DAILY IV 04/04/25 11:30 04/05/25 08:49 20 MG Melatonin 5 mg HS PRN PO 04/04/25 23:45 04/04/25 23:54 5 MG Examination: GENERAL:Abnormal, LUNGS:Abnormal, CVS:Abnormal, ABDOMEN:Abnormal laboratory and microbiology Laboratory Tests 04/07/25 05:58 04/06/25 06:19 Test 04/06/25 06:19 Range/Units Serum Glucose 111 H 74-106 mg/dL Problem List/Assessment/Plan Problem List/Assessment/Plan severe chf meth abuse non compliance LV thrombus nstemi morbid obesity recommend [facility] tomorrow to assess for cad pt is very high risk pt given active LV thrombus which was not diagnosed at [facility] last month so possibly new? will hold heparin at 0500 risk of cva very high risk pt , coupled with leaving AMA, heavy drug use, morbid obesity and totally medically non compliant, high risk for cath sp cath no severe cad recommend GDMT iv lasix BB entresto recommend off label eliquis 5 mg po bid use for LV thrombus with 1 week load (10 bid) typically coumadin is recommended but the likelihood of her faithfully taking this is very low continued drug use will result in pt aware dc planned today Plan discussed with: Patient Date of Service: Apr 07, 2025 Billing Provider: LAURA CLEARY MD Common Visit Codes: NOT BILLABLE LAURA CLEARY MD Apr 07, 2025 12:37
[2025-04-07 12:55] VITALS: BP 126/86; PULSE 74; RESP 19; TEMP 36.9; O2SAT 99
== END 2025-04-07 14:27 | disposition home or self-care (01) | DRG 190 ==
LOC: ER 23:04 → OVERFLOW 04-04 05:15 → TELE-CENTR 04-04 13:46
PROVIDERS: ADMIT Family Medicine; ATTEND Family Medicine
PROC: 4A023N7 Measurement of Cardiac Sampling and Pressure, Left Heart, Percutaneous Approach (ICD-10-PCS; principal; 2025-04-06)
PROC: B211YZZ Fluoroscopy of Multiple Coronary Arteries using Other Contrast (ICD-10-PCS; 2025-04-06)
DX: I21.4 Non-ST elevation (NSTEMI) myocardial infarction (principal); I50.43 Acute on chronic combined systolic (congestive) and diastolic (congestive) heart failure; I42.8 Other cardiomyopathies; I11.0 Hypertensive heart disease with heart failure; E78.5 Hyperlipidemia, unspecified; F15.90 Other stimulant use, unspecified, uncomplicated; E66.01 Morbid (severe) obesity due to excess calories; Z53.29 Procedure and treatment not carried out because of patient's decision for other reasons; E78.00 Pure hypercholesterolemia, unspecified; Z91.199 Patient's noncompliance with other medical treatment and regimen due to unspecified reason; Z88.1 Allergy status to other antibiotic agents; Z87.891 Personal history of nicotine dependence; Z86.73 Personal history of transient ischemic attack (TIA), and cerebral infarction without residual deficits; Z68.41 Body mass index [BMI] 40.0-44.9, adult
CPT/HCPCS: 36415; 71045; 80048; 80053; 80061; 80307; 81001; 81025; 82962; 83036; 83735; 84443; 84484; 85025; 85610; 85730; 86850; 86900; 86901; 93005; 93306; 93458; 96365; 96375; 99152; 99291; G0378; J2250; J2405; Q9956; Q9967